=== PATIENT | male | born 1950 | race Caucasian/White ===

== ENCOUNTER → 2018-12-09 09:05 | Outpatient (CLI) | payer OTHER, SELFPAY ==
[2018-12-09 09:29] LABS: Add Manual Diff / Slide Review NO; Basophils Absolute Auto 100 /uL (0-100); Basophils Percent Auto 0.9 % (0-2); Eosinophils Absolute Auto 100 /uL (0-450); Eosinophils Percent Auto 2.3 % (2-4); Hematocrit 45.4 % (41-53); Hemoglobin 15.4 g/dL (13.5-17.5); Lymphocytes Absolute Auto 2400 /uL (1100-4500); Lymphocytes Percent Auto 37.1 % (25-40); Mean Corpuscular Hemoglobin 29.1 PG (26-34); Mean Corpuscular Volume 85.7 fL (80-100); Monocytes Absolute Auto 500 /uL (0-900); Monocytes Percent Auto 7.8 % (3-14); Neutrophils Absolute Auto 3400 /uL (1500-7000); Neutrophils Percent Auto 51.9 % (50-75); Platelet Count 209 X10^3/uL (150-400); Red Cell Distribution Width 13.1 % (11.6-14.8); White Blood Cell Count 6.4 X10^3/uL (4.5-11.0)
[2018-12-09 09:38] LABS: Alanine Aminotransferase 33 IU/L (21-72); Albumin 4.7 g/dL (3.5-5.0); Albumin Globulin Ratio 1.6 (1.0-2.8); Alkaline Phosphatase 63 U/L (38-126); Aspartate Aminotransferase 34 IU/L (17-59); BUN Creatinine Ratio 17.3 (6-22); Bilirubin Total 0.9 mg/dL (0.2-1.3); Blood Urea Nitrogen 19 mg/dL (9-20); Calcium 9.5 mg/dL (8.4-10.2); Carbon Dioxide 25 mmol/L (22-32); Chloride 102 mmol/L (98-107); Cholesterol 214 mg/dL (140-199); Estimated Glomerular Filt Rate > 60.0 mL/min (>60); Globulin 2.9 g/dL (1.7-4.1); Glucose 106 mg/dL (80-110); HDL Cholesterol 60 mg/dL (40-60); HEMOLYSIS < 15 (0-50); LDL Cholesterol Calculated 129 mg/dL (<100); Potassium 4.3 mmol/L (3.4-5.1); Sodium 138 mmol/L (137-145); Total Protein 7.6 g/dL (6.3-8.2); Triglycerides 123 mg/dL (35-150)
[2018-12-09 10:08] LABS: Prostate Specific Antigen Scrn 2.03 ng/mL (0.1-4.0); Thyroid Stimulating Hormone 2.31 uIU/mL (0.47-4.68)
== END ==
PROVIDERS: PCP Family Medicine; Visit Provider Family Medicine
DX: E78.2 Mixed hyperlipidemia (principal); R73.09 Other abnormal glucose; Z12.5 Encounter for screening for malignant neoplasm of prostate
CPT/HCPCS: 36415; 80053; 80061; 84443; 85025; G0103

== ENCOUNTER → 2020-05-11 10:53 | Outpatient (CLI) | payer MEDICARE, SELFPAY ==
[2020-05-11 11:38] LABS: Add Manual Diff / Slide Review NO; Basophils Absolute Auto 0 /uL (0-100); Basophils Percent Auto 0.7 % (0-2); Eosinophils Absolute Auto 100 /uL (0-450); Eosinophils Percent Auto 2.2 % (2-4); Hematocrit 43.9 % (41-53); Hemoglobin 15.4 g/dL (13.5-17.5); Lymphocytes Absolute Auto 1700 /uL (1100-4500); Lymphocytes Percent Auto 28.5 % (25-40); Mean Corpuscular HGB Conc 35.2 % (30-36); Mean Corpuscular Hemoglobin 29.9 PG (26-34); Mean Corpuscular Volume 84.9 fL (80-100); Monocytes Absolute Auto 500 /uL (0-900); Monocytes Percent Auto 7.9 % (3-14); Neutrophils Absolute Auto 3600 /uL (1500-7000); Neutrophils Percent Auto 60.7 % (50-75); Platelet Count 181 X10^3/uL (150-400); Red Blood Cell Count 5.17 X10^6/uL (4.5-5.9); Red Cell Distribution Width 12.6 % (11.6-14.8); White Blood Cell Count 5.9 X10^3/uL (4.5-11.0)
[2020-05-11 12:03] LABS: Alanine Aminotransferase 25 IU/L (<50); Albumin 4.6 g/dL (3.5-5.0); Albumin Globulin Ratio 1.8 (1.0-2.8); Alkaline Phosphatase 70 U/L (38-126); Aspartate Aminotransferase 35 IU/L (17-59); BUN Creatinine Ratio 23.4 (6-22); Bilirubin Total 0.7 mg/dL (0.2-1.3); Blood Urea Nitrogen 22 mg/dL (9-20); Carbon Dioxide 26 mmol/L (22-32); Chloride 104 mmol/L (98-107); Cholesterol 216 mg/dL (140-199); Estimated Glomerular Filt Rate > 60.0 mL/min (>60); Globulin 2.6 g/dL (1.7-4.1); Glucose 100 mg/dL (80-110); HDL Cholesterol 52 mg/dL (40-60); HEMOLYSIS < 15 (0-50); LDL Cholesterol Calculated 142 mg/dL (<100); Potassium 4.5 mmol/L (3.4-5.1); Sodium 136 mmol/L (137-145); Total Protein 7.2 g/dL (6.3-8.2); Triglycerides 112 mg/dL (35-150)
== END ==
PROVIDERS: Family Provider Family Medicine; PCP Family Medicine; Referring Provider Family Medicine; Visit Provider Family Medicine
DX: E78.2 Mixed hyperlipidemia (principal); Z12.5 Encounter for screening for malignant neoplasm of prostate
CPT/HCPCS: 36415; 80053; 80061; 85025; G0103

== ENCOUNTER → 2020-07-31 10:39 | Outpatient (CLI) | payer MEDICARE, SELFPAY ==
[2020-08-01 13:19] LABS: COVID19 Sendout Not Detected (Not Detect)
== END ==
PROVIDERS: Family Provider Family Medicine; PCP Family Medicine; Visit Provider Physician Assistant
DX: Z11.59 Encounter for screening for other viral diseases (principal)
CPT/HCPCS: 87635

== ENCOUNTER 2020-08-03 08:20 | Day surgery (SDC) | payer MEDICARE, SELFPAY ==
--- NOTE | 2020-08-03 | PATH_ITS ---
[facility] Accession Number: [id number] . 01 Material submitted: . colon - POLYP IN CECUM NEAR ILEOCECAL VALVE . 01 Clinical history: . SDC . 02 Diagnosis: Colon, Polyp in Cecum Near Ileocecal Valve, Biopsy: Tubular adenoma. [facility] 08/07/2020 1732 Local . 02 Electronically signed: . Nakia Brito MD, Pathologist NPI- [id number] . 01 Gross description: . POLYP IN CECUM NEAR ILEOCECAL VALVE: Received in formalin is 1 fragment(s) of landrum, soft tissue measuring 0.4 x 0.3 x 0.3 cm submitted entirely in 1 cassette(s) /QBJ 08/04/2020 0831 Local . 02 Pathologist provided ICD-10: D12.0 . 02 CPT . 664009 Performed at: 01 [facility] [address], [place], [place] [id number] MD Yonis Pugh MD Phone: [phone] Performed at: 02 [facility] [address] [place], [place] [id number] MD Nakia Brito MD Phone: [phone]
[2020-08-03 08:39] VITALS: BP 130/85; PULSE 80; RESP 16; TEMP 36.5; O2SAT 99; BMI 25.0
[2020-08-03] MEDS: LACTATED RINGERS 1,000 ML 200 ML IV (08:49)
--- NOTE | 2020-08-03 09:36 | PM.HP.1 ---
History of Present Illness History of Present Illness Date Patient Seen: 08/03/20 Time Patient Seen: 09:33 Chief complaint: SDC Narrative: Patient is a gentleman here for screening colonoscopy. His last exam was for 5 years ago. He has had polyps. Patient History Medical History (Updated 08/03/20 @ 09:37 by Dayne Alicia MD) Facial nerve palsy (Inactive) Hypertension (Acute) Mixed hyperlipidemia (03/17/17) Family & Social History Social History: household members spouse Tobacco & Substance use: Smoking Status Never smoker alcohol intake current alcohol intake frequency holiday/special occasion Substance Use Type does not use Meds Home Medications and Allergies Home Medications Medication Instructions Recorded Confirmed Type lovastatin 20 mg tablet 40 mg PO DAILY tab 05/11/20 08/03/20 History sodium,potassium,mag sulfates 17.5 177 ml PO DAILY #354 ml 07/13/20 08/03/20 Rx gram-3.13 gram-1.6 gram oral soln Allergies Allergy/AdvReac Type Severity Reaction Status Date / Time No Known Drug Allergies Allergy Verified 08/03/20 08:38 Review of Systems Review of Systems Narrative: Wears glasses ROS: Yes All systems reviewed with the patient and are negative except as otherwise documented Exam Vital Signs (past 8 hours): - 08/03/20 08:39 Temperature 97.7 F Pulse Rate 80 Respiratory Rate 16 Blood Pressure 130/85 Pulse Oximetry 99 Oxygen Delivery Method Room Air Narrative Exam Narrative: Pleasant cooperative patient no apparent distress. Lungs are clear to auscultation. No rales or rhonchi. Heart regular rate and rhythm no murmur gallop. Abdomen is soft nontender without mass. No obvious hernias. Patient is alert and oriented x3. Assessment & Plan Assessment & Plan narrative: The patient for a screening colonoscopy. I have discussed the procedure with them. Risks of bleeding, perforation which would necessitate major operation, failure to find remove all lesions, the potential tattoo were all discussed. All questions were answered. They wished to proceed.
--- NOTE | 2020-08-03 09:41 | PM.PREOP ---
Pre-operative Note COVID-19 COVID-19 status: Negative Result date/Date tested (Pos, Neg/Pending): 07/31/20 Interval Note History & Physical reviewed/Exam performed by Physician: Yes Changes to H&P: No ASA Class (for procedural sedation): I
[2020-08-03] MEDS: MIDAZOLAM 5 MG/5 ML VIAL IV (09:50)
[2020-08-03] MEDS: fentaNYL 250 MCG/5 ML INJ IV (09:50)
[2020-08-03] MEDS: ATROPINE 1 MG/10 ML SYRINGE 0.4 MG IV (09:51)
--- NOTE | 2020-08-03 09:56 | SUR.OPER ---
oxygen increased and oxygen 85%, Nasal airway placed by at 0942 sats returned into 90's.
--- NOTE | 2020-08-03 10:09 | PM.OP.ENDO ---
Operative Date/Time/Diagnoses Date of procedure: 08/03/20 Time of procedure: 10:09 Pre-op diagnosis: Screening exam. Last exam 5 years ago. History of polyps Post-op diagnosis: same (Sigmoid diverticulosis. Small polyp adjacent to the ileocecal valve. Biopsy did remove it. Patient has an enlarged prostate) Procedure & Clinicians Study performed: Colonoscopy with cold biopsy Same procedure as scheduled: Yes Indications: Screening Surgeon: Dayne Alicia Procedure Notes SCOAP/Timeout: Performed Procedure in detail: The patient was placed in the left lateral decubitus position and underwent IV sedation directed by the surgeon consisting of fentanyl and Versed. Digital exam was remarkable for an enlarged prostate. The scope was inserted and advanced through the rectum into the sigmoid, descending, transverse, and ascending colon. Pressure was applied to get that far and then into the cecum. Sigmoid diverticulosis was noted.. The cecum was reached identified by the ileocecal valve and the appendiceal opening. The ileocecal valve was successfully cannulated. The terminal ileum was normal in appearance. A small Polyp was found at the edge of the ileocecal valve. It was biopsied and removed.The scope was gradually brought out. The scope ultimately was retroflexed in the rectum. The appearance was normal except for a small hemorrhoid without ulceration. The scope was removed and the patient tolerated the procedure well. The prep was very good Scope withdrawal time: 7 minutes Sedation minutes: 25 Findings: diverticulosis (Sigmoid) and other findings (Enlarged prostate) Specimen(s): other (Polyp in cecum near ileocecal valve) Complications: none Post-procedure Recommendations: Colonscopy in 5 years Follow up: as needed Disposition: PACU
[2020-08-03 10:11] VITALS: BP 114/72; PULSE 77; RESP 10; TEMP 36.1; O2SAT 93
[2020-08-03 10:16] VITALS: BP 101/67; PULSE 70; RESP 11; O2SAT 92
[2020-08-03 10:21] VITALS: BP 98/66; PULSE 91; RESP 26; O2SAT 95
[2020-08-03 10:27] VITALS: BP 104/70; PULSE 73; RESP 16; TEMP 36.3; O2SAT 93
[2020-08-03 10:56] VITALS: BP 101/68; PULSE 69; RESP 16; TEMP 36.6; O2SAT 96
== END 2020-08-03 11:01 | disposition home or self-care (01) ==
PROVIDERS: Family Provider Family Medicine; PCP Family Medicine; Referring Provider Family Medicine; Visit Provider Specialist
PROC: 0DJD8ZZ Inspection of Lower Intestinal Tract, Via Natural or Artificial Opening Endoscopic (ICD-10-PCS; CPT 45378; principal; 2020-08-03 09:30)
DX: Z12.11 Encounter for screening for malignant neoplasm of colon (principal); Z86.010 Personal history of colon polyps; I10 Essential (primary) hypertension; E78.2 Mixed hyperlipidemia; N40.0 Benign prostatic hyperplasia without lower urinary tract symptoms; K57.30 Diverticulosis of large intestine without perforation or abscess without bleeding; D12.0 Benign neoplasm of cecum
CPT/HCPCS: 45380; 99152; 99153; J0461; J2250; J3010

== ENCOUNTER → 2020-12-26 10:10 | Outpatient (CLI) | payer MEDICARE, SELFPAY ==
[2020-12-26 11:07] LABS: Cholesterol 209 mg/dL (140-199); HDL Cholesterol 48 mg/dL (40-60); LDL Cholesterol Calculated 139 mg/dL (<100); Triglycerides 112 mg/dL (35-150)
[2020-12-26 11:43] LABS: Vitamin D 25 Hydroxy (D3) 32.5 ng/mL (30.0-100.0)
== END ==
PROVIDERS: Family Provider Family Medicine; PCP Student in an Organized Health Care Education/Training Program; Referring Provider Student in an Organized Health Care Education/Training Program; Visit Provider Student in an Organized Health Care Education/Training Program
DX: E55.9 Vitamin D deficiency, unspecified (principal); E78.2 Mixed hyperlipidemia
CPT/HCPCS: 36415; 80061; 82306

== ENCOUNTER → 2022-03-04 07:25 | Outpatient (CLI) | payer MEDICARE, SELFPAY ==
[2022-03-04 09:01] LABS: BUN Creatinine Ratio 21.2 (6-22); Blood Urea Nitrogen 24 mg/dL (9-20); Calcium 8.9 mg/dL (8.4-10.2); Carbon Dioxide 29 mmol/L (22-32); Chloride 105 mmol/L (98-107); Cholesterol 187 mg/dL (140-199); Estimated Glomerular Filt Rate > 60 mL/min (>60); Glucose 102 mg/dL (80-110); HDL Cholesterol 51 mg/dL (40-60); HEMOLYSIS < 15 (0-50); LDL Cholesterol Calculated 119 mg/dL (<100); Potassium 4.3 mmol/L (3.4-5.1); Sodium 140 mmol/L (137-145); Triglycerides 86 mg/dL (35-150)
[2022-03-04 09:27] LABS: Prostate Specific Antigen Scrn 2.03 ng/mL (0.1-4.0)
== END ==
PROVIDERS: Family Provider Family Medicine; PCP Student in an Organized Health Care Education/Training Program; Referring Provider Student in an Organized Health Care Education/Training Program; Visit Provider Student in an Organized Health Care Education/Training Program
DX: E78.2 Mixed hyperlipidemia (principal); Z12.5 Encounter for screening for malignant neoplasm of prostate; Z79.899 Other long term (current) drug therapy
CPT/HCPCS: 36415; 80048; 80061; G0103

== ENCOUNTER → 2024-05-18 08:43 | Outpatient (CLI) | payer MEDICARE, SELFPAY ==
[2024-05-18 10:09] LABS: Add Manual Diff / Slide Review NO; Basophils Absolute Auto 0 /uL (0-100); Basophils Percent Auto 0.4 % (0-2); Eosinophils Absolute Auto 200 /uL (0-450); Eosinophils Percent Auto 2.6 % (2-4); Hematocrit 41.2 % (41-53); Hemoglobin 14.1 g/dL (13.5-17.5); Lymphocytes Absolute Auto 2000 /uL (1100-4500); Lymphocytes Percent Auto 32.1 % (25-40); Mean Corpuscular HGB Conc 34.2 % (30-36); Mean Corpuscular Hemoglobin 29.3 PG (26-34); Mean Corpuscular Volume 85.6 fL (80-100); Monocytes Absolute Auto 600 /uL (0-900); Monocytes Percent Auto 9.2 % (3-14); Neutrophils Absolute Auto 3400 /uL (1500-7000); Neutrophils Percent Auto 55.7 % (50-75); Platelet Count 193 X10^3/uL (150-400); Red Blood Cell Count 4.81 X10^6/uL (4.5-5.9); White Blood Cell Count 6.1 X10^3/uL (4.5-11.0)
[2024-05-18 10:24] LABS: HEMOLYSIS < 15 (0-50)
[2024-05-18 10:35] LABS: Alanine Aminotransferase 27 IU/L (<50); Albumin 4.4 g/dL (3.5-5.0); Albumin Globulin Ratio 1.8 (1.0-2.8); Alkaline Phosphatase 74 U/L (38-126); Aspartate Aminotransferase 39 IU/L (17-59); BUN Creatinine Ratio 27.6 (6-22); Bilirubin Total 0.8 mg/dL (0.2-1.3); Blood Urea Nitrogen 27 mg/dL (9-20); Calcium 9.3 mg/dL (8.4-10.2); Carbon Dioxide 27 mmol/L (22-32); Chloride 105 mmol/L (98-107); Cholesterol 192 mg/dL (140-199); Estimated Glomerular Filt Rate > 60 mL/min (>60); Globulin 2.5 g/dL (1.7-4.1); Glucose 98 mg/dL (80-110); HDL Cholesterol 54 mg/dL (40-60); LDL Cholesterol Calculated 120 mg/dL (<100); Potassium 4.6 mmol/L (3.4-5.1); Sodium 138 mmol/L (137-145); Total Protein 6.9 g/dL (6.3-8.2); Triglycerides 90 mg/dL (35-150)
[2024-05-18 11:25] LABS: Hep C Virus Ab w/Reflex Quant NEGATIVE s/c (NEGATIVE)
[2024-05-19 15:19] LABS: Prostate Specific Antigen Scrn 1.68 ng/mL (0.1-4.0)
== END ==
PROVIDERS: Family Provider Family Medicine; PCP Family Medicine; Referring Provider Family Medicine; Visit Provider Family Medicine
DX: E78.2 Mixed hyperlipidemia (principal); Z12.5 Encounter for screening for malignant neoplasm of prostate; Z00.00 Encounter for general adult medical examination without abnormal findings; K21.9 Gastro-esophageal reflux disease without esophagitis
CPT/HCPCS: 36415; 80053; 80061; 85025; 86803; G0103

== ENCOUNTER → 2025-06-01 13:28 | Outpatient (CLI) | payer MEDICARE, SELFPAY ==
--- NOTE | 2025-06-01 13:28 | DI.RAD.S_ITS ---
PROCEDURE: FL UPPER GI W AIR INDICATIONS: Worsening GERD symptoms COMPARISON: None. 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 No suspicious abdominal calcifications. Visualized solid organ contours appear normal. Bony structures appear unremarkable. Esophagus: Esophageal mucosa is normal on air-contrast views. No strictures, extrinsic mass effects, or diverticula. No hiatal hernia or elicited gastroesophageal reflux despite several attempts. There is normal transit of a calibrated barium tablet through the esophagus. No significant esophageal dysmotility in the standing position. However, in the decubitus position there is [id number] esophageal dysmotility. This is demonstrable by diminished in delayed peristaltic stripping and tertiary contractions. No shalom aspiration on a lateral view. No laryngotracheal penetration is appreciated. There is mild epiglottic pooling. Stomach: The stomach is normally distensible, with normal rugal fold thickness. No mucosal masses or ulcers. Pylorus and duodenal bulb appear normal in morphology. Duodenal folds are normal in thickness as well. IMPRESSION: [id number] esophageal dysmotility in the decubitus position. Epiglottic pooling. No shalom aspiration. No gastroesophageal reflux. No hiatal hernia or stricture. Dictated by: Mal Mendes M.D. on 06/01/2025 at 14:42 Approved by: Mal Mendes M.D. on 06/01/2025 at 14:48
== END ==
LOC: RAD 13:28
PROVIDERS: Family Provider Family Medicine; PCP Family Medicine; Referring Provider Family Medicine; Visit Provider Family Medicine
DX: Z00.00 Encounter for general adult medical examination without abnormal findings (principal); K22.4 Dyskinesia of esophagus; K21.9 Gastro-esophageal reflux disease without esophagitis; E78.2 Mixed hyperlipidemia
CPT/HCPCS: 74246

== ENCOUNTER 2025-08-01 11:26 | Emergency (ER) | payer MEDICARE, SELFPAY ==
[2025-08-01] VITALS (11 sets, daily range): BP systolic 112–145; BP diastolic 50–71; PULSE 55–69; RESP 15–22; TEMP 36.6; O2SAT 94–99; BMI 26.8
--- NOTE | 2025-08-01 11:37 | EKG_ITS ---
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
--- NOTE | 2025-08-01 11:53 | DI.RAD.S_ITS ---
PROCEDURE: XR CHEST 1V INDICATIONS: syncope TECHNIQUE: One view of the chest was acquired. COMPARISON: None. FINDINGS: Surgical changes and devices: None. Lungs and pleura: Lungs are clear. No pleural effusions or pneumothorax. Mediastinum: Mediastinal contours appear normal. Heart size is normal. Bones and chest wall: No suspicious bony lesions. Overlying soft tissues appear unremarkable. IMPRESSION: No acute cardiopulmonary abnormality is seen. Dictated by: Vinicio Celestin M.D. on 08/01/2025 at 12:12 Approved by: Vinicio Celestin M.D. on 08/01/2025 at 12:13
[2025-08-01] MEDS: SODIUM CHLORIDE 0.9% 1,000 ML 1000 ML IV (11:58)
[2025-08-01 12:06] LABS: Add Manual Diff / Slide Review NO; Hematocrit 44.5 % (41-53); Hemoglobin 15.2 g/dL (13.5-17.5); Lymphocytes Absolute Auto 2200 /uL (1100-4500); Mean Corpuscular HGB Conc 34.2 % (30-36); Mean Corpuscular Hemoglobin 29.5 PG (26-34); Mean Corpuscular Volume 86.3 fL (80-100); Platelet Count 213 X10^3/uL (150-400)
[2025-08-01 12:11] LABS: Alanine Aminotransferase 30 IU/L (<50); Albumin 4.7 g/dL (3.5-5.0); Albumin Globulin Ratio 1.6 (1.0-2.8); Alkaline Phosphatase 58 U/L (38-126); Blood Urea Nitrogen 25 mg/dL (9-20); Calcium 9.3 mg/dL (8.4-10.2); Carbon Dioxide 22 mmol/L (22-32); Chloride 102 mmol/L (98-107); Creatine Kinase 86 U/L (55-170); Estimated Glomerular Filt Rate > 60 mL/min (>60); Globulin 3.0 g/dL (1.7-4.1); Glucose 97 mg/dL (70-99); HEMOLYSIS 47 (0-50); Lipase 111 U/L (23-300); Potassium 4.1 mmol/L (3.4-5.1); Sodium 137 mmol/L (137-145); Total Protein 7.7 g/dL (6.3-8.2)
[2025-08-01 12:23] LABS: NT-proBNP (BNP-Adult 18+) 83 pg/mL (<125); Troponin I < 0.012 ng/mL (0.01-0.034)
--- NOTE | 2025-08-01 13:16 | ED.SYNCOPE ---
HPI - Syncope General Chief Complaint: Syncope Stated Complaint: loss of consciousness Time Seen by Provider: 08/01/25 11:52 Source: patient and EMS Mode of arrival: EMS Limitations: no limitations History of Present Illness HPI narrative: 74-year-old male history of hypertension BPH who presents with syncopal episode while working out at the gym reportedly had a brief loss of consciousness reportedly for several sec. Patient notes had gone to the gym has had a hiatus from working out for 2 or 3 months while he was in [facility]. Today did 30 sit-ups, leg lifts, overhead presses, fly, twists and then was doing bench press he did 2 sets of 10 then started to see stars he was still lying on his back. He has stopped to take a break and felt very lightheaded and then woke up with everyone around him. Patient states he has had 1 prior syncopal episode before after influenza. He states he will occasionally feel very lightheaded when he stands up quickly. He has not had any syncopal episodes recently. No fevers or chills, no chest pain, no shortness of breath no nausea or vomiting. States he was sweaty when this was occurring but notes he was working out and has a heavy sweats shirt on at the same time. No numbness tingling or weakness. No cold cough or congestion symptoms. He denies any new swelling in his extremities. He has not felt any persistent symptoms but has not ambulated since this occurred. He is on lovastatin and tamsulosin daily. Tamsulosin in his new has a 3 or 4 months ago. He takes an aspirin every other day. No prior surgeries no prior cardiac stents or interventions. No known drug allergies. No tobacco, rare alcohol, no recreational drugs. He notes that he recently traveled back from [place] describes flying. No known history of pulmonary emboli otherwise. No known cardiac history otherwise. Related Data Previous Rx's ?Medication ?Instructions ?Recorded tamsulosin 0.4 mg capsule 0.4 mg PO BEDTIME #90 caps 04/25/25 lovastatin 40 mg tablet 40 mg PO DAILY #100 tabs 05/09/25 Allergies Allergy/AdvReac Type Severity Reaction Status Date / Time No Known Drug Allergies Allergy Verified 08/01/25 11:39 Review of Systems Review of Systems ROS Unobtainable: All systems reviewed & are unremarkable except as noted in HPI and below Patient History Medical History BPH (benign prostatic hyperplasia) Well adult exam Preventative health care History of basal cell carcinoma GERD (gastroesophageal reflux disease) Encounter for subsequent annual wellness visit in Medicare patient Mixed hyperlipidemia (03/17/17) Facial nerve palsy Social History household members: spouse Smoking Status: Never smoker alcohol intake: current Smoking Status: Never smoker alcohol intake frequency: holidays/special occasions only Exam Narrative Exam Narrative: GEN: well nourished, well appearing male, alert and oriented x 3, patient appears to be in mild distress. HEENT: Atraumatic, pupils are equal round reactive to light, extraocular movements are intact, nares are clear, there is no conjunctival pallor. Throat is clear without any exudates, erythema, tonsillar enlargement or uvular deviation HEART: Regular rate and rhythm without murmur, clicks, rubs. No edema bilateral upper lower extremities. LUNGS:Lungs clear to auscultation, no wheezes, rales, crackles, chest moves symmetrically ABD:bowel sounds normal, soft, non-tender, no guarding, rebound, rigidity, no masses noted, no hepatosplenomegaly. No pulsatile mass or bruit :No CVA tenderness MSCL: Non-tender, no muscle atrophy, muscles strength 5/5 upper and lower extremities, full range of motion. NEURO:CN 2-12 intact, sensation normal. Initial Vital Signs Initial Vital Signs: Vital Signs Pulse Rate 69 08/01/25 11:32 Respiratory Rate 15 08/01/25 11:32 Pulse Oximetry 94 08/01/25 11:32 Course Orders Ordered: ED Orders 08/01/25 11:30 Complete Blood Count AUTO DIFF Stat Comprehensive Metabolic Panel Stat Lipase Stat NT-proBNP (BNP-Adult 18+) Stat Troponin & CK Cardiac Panel Stat 08/01/25 11:37 EKG-12 Lead Stat 08/01/25 11:53 XR chest 1V Stat EKG-12 Lead Stat 08/01/25 13:32 CT angio chest PE protocol Stat Discontinued Medications Sodium Chloride (Normal Saline 0.9%) 1,000 mls @ 1,000 mls/hr IV BOLUS ONE Stop: 08/01/25 12:51 Last Infusion: 08/01/25 13:02 Dose: Infused Documented By: Admin: 08/01/25 11:58 Dose: 1,000 mls/hr Documented By: RASHEED Vital Signs Vital signs: Vital Signs - 8 hr 08/01/25 11:32 08/01/25 11:39 08/01/25 12:00 Temperature 97.8 F Pulse Rate 69 68 63 Respiratory Rate 15 17 16 Blood Pressure 112/50 L Pulse Oximetry 94 96 97 Oxygen Delivery Method Room Air 08/01/25 12:01 08/01/25 12:01 08/01/25 12:30 Temperature Pulse Rate 63 Respiratory Rate 18 Blood Pressure 128/62 116/59 L Pulse Oximetry 97 Oxygen Delivery Method 08/01/25 12:30 08/01/25 13:00 08/01/25 13:00 Temperature Pulse Rate 55 L 59 L Respiratory Rate 19 22 Blood Pressure 131/60 Pulse Oximetry 97 97 Oxygen Delivery Method 08/01/25 13:30 08/01/25 13:30 08/01/25 14:00 Temperature Pulse Rate 56 L 63 Respiratory Rate 17 18 Blood Pressure 145/65 H Pulse Oximetry 98 99 Oxygen Delivery Method 08/01/25 15:11 08/01/25 15:12 08/01/25 15:12 Temperature Pulse Rate 64 61 Respiratory Rate 18 Blood Pressure 136/71 Pulse Oximetry 98 98 Oxygen Delivery Method 08/01/25 15:25 Temperature Pulse Rate 61 Respiratory Rate 20 Blood Pressure 136/71 Pulse Oximetry 98 Oxygen Delivery Method Room Air MDM - Syncope Lab Data 08/01/25 11:30 08/01/25 11:30 Labs: Lab Results 08/01/25 Range/Units 11:30 WBC 8.6 (4.5-11.0) X10^3/uL RBC 5.16 (4.5-5.9) X10^6/uL Hgb 15.2 (13.5-17.5) g/dL Hct 44.5 (41-53) % MCV 86.3 (80-100) fL MCH 29.5 (26-34) PG MCHC 34.2 (30-36) % RDW 13.3 (11.6-14.8) % Plt Count 213 (150-400) X10^3/uL Neut % (Auto) 66.2 (50-75) % Lymph % (Auto) 25.4 (25-40) % Union % (Auto) 6.2 (3-14) % Eos % (Auto) 1.7 L (2-4) % Baso % (Auto) 0.5 (0-2) % Neut # (Auto) 5700 (9750-1424) /uL Lymph # (Auto) 2200 (2172-2290) /uL Union # (Auto) 500 (0-900) /uL Eos # (Auto) 100 (0-450) /uL Baso # (Auto) 0 (0-100) /uL Sodium 137 (137-145) mmol/L Potassium 4.1 (3.4-5.1) mmol/L Chloride 102 (98-107) mmol/L Carbon Dioxide 22 (22-32) mmol/L BUN 25 H (9-20) mg/dL Creatinine 1.20 (0.66-1.25) mg/dL Estimated GFR > 60 (>60) mL/min BUN/Creatinine Ratio 20.8 (6-22) Glucose 97 (70-99) mg/dL Calcium 9.3 (8.4-10.2) mg/dL Total Bilirubin 1.0 (0.2-1.3) mg/dL AST 44 (17-59) IU/L ALT 30 (<50) IU/L Alkaline Phosphatase 58 (38-126) U/L Total Creatine Kinase 86 (55-170) U/L Troponin I < 0.012 (0.01-0.034) ng/mL NT-Pro-B Natriuret Pep 83 (<125) pg/mL Total Protein 7.7 (6.3-8.2) g/dL Albumin 4.7 (3.5-5.0) g/dL Globulin 3.0 (1.7-4.1) g/dL Albumin/Globulin Ratio 1.6 (1.0-2.8) Lipase 111 (23-300) U/L ECG Data Attestation: I personally reviewed and interpreted this ECG as follows: Prior ECG tracings: available for review Interpretation: Sinus rhythm rate of 70 ID 162 QRS of 110 QTC of 460 has prior from 04/27/2017 some nonspecific change in V2 and lead 3 but not in contiguous leads. No acute ST-elevation depression appreciated. MDM Narrative Medical decision making narrative: Labs show normal white count, hemoglobin and platelets, chemistries are overall appropriate BUN 25 creatinine is 1.2, was 0.98 in May of 2024, glucose is 97. LFTs are normal troponins less than 0.012 with a BNP of 83. Chest x-ray shows no acute cardiopulmonary abnormality. EKG shows sinus rhythm no acute ST elevation or depression noted. Nonspecific change at V2 and lead 3 but not contiguous leads. CT angio PE protocol shows no pulmonary embolism, ectatic ascending thoracic aorta recommend follow up CT angiogram in 12 months. Cholelithiasis without acute cholecystitis. Medial right lower lobe paravertebral scarring/fibrosis adjacent prominent vertebral osteophytes. Patient received a L fluids 74-year-old male with syncopal episode immediately after/during working out. Patient notes he had has a hiatus from working out used to be his normal regimen but has been in [facility] for 2 or 3 months and not working out regularly. Does not use had recent airline travel with a longer flights because of syncopal episode maybe provoked from his work out but felt appropriate for CT angio to rule out PE. Vitals are overall appropriate he is slightly bradycardic, no hypoxia, no hypotension. He has been afebrile. Patient had ambulation trial without issue. Able to urinate without any issue here in the department while standing. Patient feels much improved. Reviewed findings including ectasia of the patient's thoracic aorta recommended CT angio in 12 months, patient has not had any other symptoms. Does have primary care follow up here locally. Did discuss return precautions and importance of todays findings. Discharge Plan Departure Patient Disposition: Home Clinical Impression: Syncope, Aortic ectasia Instructions: DI for Syncope in Adults (Fainting) Activity Restrictions/Additional Instructions: Follow up with your physician your CT of your chest shows ectasia of your ascending thoracic aorta up to 3.9 cm this should be follow up with a CT chest angiogram in the next 12 months. Talk with your primary care physician so that is this is performed. Incidentally you are found to have some gallstones on your imaging as well. Please return if you have recurrent episodes of lightheadedness or passing out, if you have any chest pain, shortness of breath, nausea or vomiting, new swelling of your extremities or any other new or concerning changes. Prescriptions: No Action lovastatin 40 mg tablet 40 mg PO DAILY Qty: 100 3RF tamsulosin 0.4 mg capsule 0.4 mg PO BEDTIME Qty: 90 3RF Referrals: Jacob Arguelles DO [Primary Care Provider, [facility]] Stand Alone Forms: Patient Portal/API
--- NOTE | 2025-08-01 13:32 | DI.CT.S_ITS ---
PROCEDURE: CT ANGIO CHEST PE PROTOCOL INDICATIONS: syncope, recent travel, lifting weights when occurred. TECHNIQUE: After the administration of intravenous contrast, 2 mm thick sections acquired from the pulmonary apices to the posterior costophrenic angles. 3-dimensional maximum intensity projection (MIP) coronal and sagittal reformats were then acquired through the thorax. For radiation dose reduction, the following was used: automated exposure control, adjustment of mA and/or kV according to patient size. COMPARISON: None. FINDINGS: Image quality: Diagnostic. Pulmonary arteries: Pulmonary arteries are normal in size, and demonstrate no intraluminal filling defects to suggest central pulmonary embolism. Lower Neck: No enlarged lymph nodes. Thyroid: No thyroid nodules which require sonographic follow up, per consensus guidelines. Axillae: No enlarged lymph nodes. Chest Wall: Unremarkable. Bones: Unremarkable. Lungs and Pleura: No pneumothorax or pleural effusions. No consolidation or suspicious nodules. Medial right lower lobe paravertebral scarring/fibrosis adjacent to prominent vertebral osteophytes. Heart: Heart size is normal. No pericardial effusion. Thoracic Vessels: Ectasias of the ascending thoracic aorta which measures 3.9 cm. Mediastinum and Silvana: No enlarged lymph nodes. Esophagus: No wall thickening. No hiatal hernia. Upper Abdomen: Cholelithiasis without visualized acute cholecystitis. IMPRESSION: 1. No pulmonary embolus. 2. Ectatic ascending thoracic aorta, recommend follow-up chest CT Angiogram in 12 months. 3. Cholelithiasis without acute cholecystitis. Dictated by: Chicho Gore M.D. on 08/01/2025 at 13:58 Approved by: Chicho Gore M.D. on 08/01/2025 at 14:01
--- NOTE | 2025-08-01 14:10 | PC.NURSE ---
Pt ambulatory to the bathroom w/stand by assist. No c/o dizziness, CP or SOB. Pt reports feeling fine. notified.
== END 2025-08-01 15:26 | disposition home or self-care (01) ==
PROVIDERS: Emergency Provider Emergency Medicine; PCP Family Medicine
DX: R55 Syncope and collapse (principal); I77.810 Thoracic aortic ectasia; R00.1 Bradycardia, unspecified
CPT/HCPCS: 36415; 71045; 71275; 80053; 82550; 83690; 83880; 84484; 85025; 93005; 96360; 99284; Q9967

== ENCOUNTER → 2025-08-11 08:00 | Outpatient (CLI) | payer MEDICARE, SELFPAY ==
--- NOTE | 2025-08-11 08:01 | DI.ECHO.S_ITS ---
[place] [facility] : : [address] : : [place] : : [id number] : : Phone: [phone] Echocardiogram Report + + :Name: RONEY OSBORNE Study Date: 08/11/2025 Height: 72 in : :[facility] ReadingLocation: Weight: 185 lb : : Gender: Male BSA: 2.1 m2 : :: 1950 Age: 74 yrs BP: 139/90 mmHg: :Reason For Study: SCREENING : :Ordering Physician: DOTTY, : :AKASH Performed By: Renee Bishop : :Referring: AKASH STORM : + + Interpretation Summary The ejection fraction is estimated to be 60-65%. Normal diastolic function. The right ventricle is normal in size and function. There is mild mitral regurgitation. There is mild aortic regurgitation. Pulmonary artery pressures cannot be estimated because of the lack of a measurable TR jet velocity but the IVC suggests a CVP of around 3 mmHg. The ascending aorta is mild-moderately enlarged. Procedure: A two-dimensional transthoracic echocardiogram with color flow and Doppler was performed. The study quality was technically adequate. There is no prior echocardiogram noted for this patient. The patient was in sinus bradycardia with heart rates between 58-65 bpm during the exam. Left Ventricle: The left ventricle is normal in size and wall thickness. The ejection fraction is estimated to be 60-65%. Normal diastolic function. Right Ventricle: The right ventricle is normal in size and function. Atria: The left atrial size is normal. Right atrial size is normal. There is no Doppler evidence for an interatrial shunt. Mitral Valve: The mitral valve leaflets appear to open well. There is mild mitral regurgitation. Aortic Valve: The aortic valve is trileaflet. The aortic valve opens well. There is no aortic valve stenosis. There is mild aortic regurgitation. Tricuspid Valve: The tricuspid valve leaflets are thin and pliable. There is trace tricuspid regurgitation. Pulmonary artery pressures cannot be estimated because of the lack of a measurable TR jet velocity but the IVC suggests a CVP of around 3 mmHg. Pulmonic Valve: The pulmonic valve leaflets are thin and pliable; valve motion is normal. There is mild to moderate pulmonic regurgitation. Great Vessels: The aortic root is normal size. The ascending aorta is mild- moderately enlarged. The IVC is of normal diameter and collapses greater than 50% with a sniff. This suggests a low right atrial pressure of 3 mm Hg. Pericardium/ Pleura There is no pericardial effusion. There is no pleural effusion. MMode/2D Measurements & Calculations LVIDd: 4.8 cm LVOT diam: 2.4 cm LVIDs: 3.1 cm Ao root diam: 3.6 cm FS: 35.3 % asc Aorta Diam: 4.2 cm EPSS: 0.45 cm Ao Arch Diam (Prox Trans): 3.4 cm IVSd: 1.1 cm LVPWd: 0.89 cm LV martinez. diameter/BSA (cm/m^2): 2.3 LV sys. diameter/BSA (cm/m^2): 1.5 LA A2 area: 17.8 cm2 RA long axis: 5.5 cm LA A4 area: 17.5 cm2 RA area: 16.8 cm2 LA length (vol): 5.7 cm RA vol: 43.4 ml LA vol: 46.3 ml RA : 21.1 ml/m2 LA vol index: 22.5 ml/m2 IVC diam: 1.4 cm RVD1 (basal): 4.0 cm RVD2 (mid): 3.4 cm TAPSE: 2.2 cm Doppler Measurements & Calculations Ao V2 max: 129.0 cm/sec LVOT Max Hudson: 102.7 cm/sec Ao V2 mean: 86.1 cm/sec LV V1 max P.2 mmHg Ao max P.7 mmHg LV V1 VTI: 25.3 cm Ao mean P.3 mmHg CHRISTIN(I,D): 4.0 cm2 Ao V2 VTI: 29.2 cm CHRISTIN(V,D): 3.7 cm2 sev ratio: 0.86 CHRISTIN indexed to BSA (cm^2/m^2): 1.9 MV E max hudson: 48.9 cm/sec TR max hudson: 200.8 cm/sec MV A max hudson: 52.3 cm/sec TR max P.1 mmHg MV E/A: 0.93 PA V2 max: 84.0 cm/sec Med Peak E' Hudson: 6.1 cm/sec PA V2 mean: 59.2 cm/sec E/E' med: 8.0 PA mean P.6 mmHg Lat Peak E' Hudson: 8.3 cm/sec PA pr(Accel): 26.8 mmHg E/E' lat: 5.9 E/e' average: 7.0 MV dec time: 0.19 sec SV(LVOT): 117.0 ml Reading Physician:12:01 PM
== END ==
LOC: ECHO 08:01
PROVIDERS: PCP Family Medicine; Referring Provider Family Medicine; Visit Provider Family Medicine
DX: I08.0 Rheumatic disorders of both mitral and aortic valves (principal); R55 Syncope and collapse; I77.819 Aortic ectasia, unspecified site; I77.89 Other specified disorders of arteries and arterioles
CPT/HCPCS: 93306

== ENCOUNTER 2025-08-18 11:27 | Day surgery (SDC) | payer MEDICARE, SELFPAY ==
--- NOTE | 2025-08-18 | PATH_ITS ---
[facility] Accession Number: [id number] No. of containers..02 Tissue . 01 Material submitted: . PART A: colon - HEPATIC FLEXURE POLYP PART B: colon - COLON,TRANSVERSE POLYP . 01 Diagnosis: A. HEPATIC FLEXURE COLON POLYP: Polypoid colonic mucosa with no neoplasia identified, consistent with mucosal redundancy. . B. TRANSVERSE COLON POLYP: Tubular adenoma. MRV 08/29/2025 1238 Local . 01 Electronically signed: . Jamilah Ansari MD, Pathologist NPI- [id number] . 01 Gross description: . Received two formalin filled containers, both labeled with the patient's name. . A. In a container labeled hepatic flexure polyp, the specimen consists one fragment of barraza-landrum soft tissue which measures 0.2 x 0.2 x 0.2 cm. The specimen is totally submitted in cassette A. B. In a container labeled transverse colon polyp is one fragment of landrum, soft tissue which measures 0.2 x 0.2 x 0.2 cm. The specimen is totally submitted in cassette B. ([facility]:[id number]) /MRV 08/25/2025 1934 Local . 01 Pathologist provided ICD-10: D12.3 . 01 CPT . 528885, [id number] Specimen Comment: A courtesy copy of this report has been sent to [facility] Performed at: [address] [address], [place], [place] [id number] MD Yonis Pugh MD Phone: [phone]
--- NOTE | 2025-08-18 10:45 | P.HP_ITS ---
History of Present Illness History of Present Illness Date Patient Seen: 08/18/25 Time Patient Seen: 10:45 Chief complaint: [facility] [place]ative: 74yo M presents for screening colonoscopy [facility] Medical History Cholelithiasis BPH (benign prostatic hyperplasia) Well adult exam Preventative health care History of basal cell carcinoma GERD (gastroesophageal reflux disease) Encounter for subsequent annual wellness visit in Medicare patient Mixed hyperlipidemia (03/17/17) Facial nerve palsy Social History household members: spouse alcohol intake: current Meds Home Medications and Allergies Home Medications ?Medication ?Instructions ?Recorded ?Confirmed ?Type tamsulosin 0.4 mg capsule 0.4 mg PO BEDTIME #90 caps 0 04/25/25 08/04/25 Rx lovastatin 40 mg tablet 40 mg PO DAILY #100 tabs 08/04/25 Rx Allergies Allergy/AdvReac Type Severity Reaction Status Date / Time No Known Drug Allergies Allergy Verified 08/04/25 10:33 Exam Narrative Exam Narrative: Const General: healthy appearing, comfortable and no acute distress Orientation: alert and oriented x3 HENMT Ears: hearing grossly normal bilaterally Eyes Visual Ridley: normal visual ridley by confrontation Conjunctivae: conjunctivae normal Sclera: sclerae normal EOM: EOM intact bilaterally Resp Effort & Inspection: normal respiratory effort and able to speak in complete sentences Cardio Rate: regular rate GI Palpation: soft (NT) Extrem General: no pedal edema and no calf tenderness Assessment & Plan Assessment and plan (1) Encounter for screening colonoscopy: Status: Acute Plan Plan screening colonoscopy, possible biopsy. The risks, benefits and options regarding the procedure were explained to the patient in detail. Risk discussion included but not limited to: bleeding, perforation, unable to reach cecum, missed lesion. The patient was encouraged to ask questions and they were answered to their satisfaction. The patient understands and is agreeable to proceed. Time-Based Coding :: [TOTAL MINUTES] spent with patient and on the chart (including review of chart, obtaining history, exam, reviewing outside data, placing orders, documenting exam and treatment plan, and counseling patient) on [DATE]. [employer] Document charge(s): Yes Charge Codes Inpatient/observation care including admit and discharge same day: [id number]
[2025-08-18 11:47] VITALS: BP 129/87; PULSE 91; RESP 16; TEMP 36.6; O2SAT 96
[2025-08-18] MEDS: LACTATED RINGERS 1,000 ML 42 ML IV (13:00)
[2025-08-18 13:30] VITALS: BP 115/60; PULSE 72; RESP 16; TEMP 36.6; O2SAT 96
--- NOTE | 2025-08-18 13:31 | PM.OP.COLON ---
Operative Date/Time/Diagnoses Date of procedure: 08/18/25 Time of procedure: 13:31 Pre-op diagnosis: Screening colonoscopy Post-op diagnosis: other (polyps) Procedure & Clinicians Study performed: Colonoscopy with polypectomy Same procedure(s) as scheduled: Yes Indications: 74yo M, h/o polyps, due for screening Surgeon: Bart Shane Anesthesia Type: MAC +/- Procedure Notes SCOAP/Timeout: Performed Procedure in detail: Colonoscopy Patient placed in left lateral recumbent position. Time out was performed. Procedural sedation was administered by anesthesia. Examination began with a thorough inspection of the perianal area. There was no evidence of fissures, fistulae, external hemorrhoids or cutaneous malignancy. The colonoscope was then placed into the rectum and the lumen was insufflated with carbon dioxide. The scope was carefully advanced forward. Ultimately the cecum was intubated and confirmed by identification of the ileocecal valve, the appendiceal orifice and the confluence of the taenia. The scope was then slowly withdrawn examining the colon thoroughly in all directions. In the rectum, retroflexion of the scope was performed for inspection of the distal rectum and anal canal. ?Significant colonoscopy findings: ?1. Quality of the preparation-good, [place] 2-3, improved with irrigation/suction ?2. 3mm sessile, benign appearing polyps x 2, removed with cold snare and retrieved for pathology, one at hepatic flexure and one in transverse colon distally Scope withdrawal time: 10 minutes Findings: polyp(s) Specimen(s): other (polyps ) Complications: none Impression: Colon polyps, pathology pending Post-procedure Recommendations: Colonoscopy in 10 years Plan for aftercare: PACU then home Follow up: as needed Disposition: PACU
[2025-08-18 13:36] VITALS: BP 111/59; PULSE 67; RESP 15; TEMP 36.6; O2SAT 96
== END 2025-08-18 14:27 | disposition home or self-care (01) ==
PROVIDERS: PCP Family Medicine; Referring Provider Surgery; Visit Provider Surgery
PROC: 0DJD8ZZ Inspection of Lower Intestinal Tract, Via Natural or Artificial Opening Endoscopic (ICD-10-PCS; CPT 45378; principal; 2025-08-18 12:45)
DX: Z12.11 Encounter for screening for malignant neoplasm of colon (principal); Z86.0100 Personal history of colon polyps, unspecified; D12.3 Benign neoplasm of transverse colon
CPT/HCPCS: 45385; J2704; J7120